=== PATIENT | male | born 1965 | race Caucasian/White ===

== ENCOUNTER → 2020-11-09 | Outpatient (CLI) | payer BC ==
--- NOTE | 2020-11-09 15:59 | US ---
EXAMINATION TYPE: US axilla LT DATE OF EXAM: 11/09/2020 COMPARISON: NONE CLINICAL HISTORY: R59.0 Localized enlarged lymph nodes. Pt has large palpable lump left axilla x 2 we eks post Moderna vaccine Large, solid lesion left axilla at pt's palpable= 5.7 x 3.8 x 6.9 cm/ blood flow visualized within Second, smaller solid lesion superior to larger one= 3.7 x 1.8 x 2.8 cm Attempted to call 's office at time of exam, no answer IMPRESSION: 1. Very large lymph node left axilla. Patient is status post COVID vaccination. Enlarged lymphadenopa thy is a known side effect. Close clinical management can be performed. Monitor for resolution. If fi ndings are not resolving, follow-up with CT chest with contrast. Lymphoma would have to be considered within the differential.
== END | disposition home or self-care (01) ==
LOC: RADUSWWP 15:34
PROVIDERS: ATTEND Family Medicine
DX: R59.0 Localized enlarged lymph nodes (principal)

== ENCOUNTER → 2020-12-11 | Outpatient (CLI) | payer BC ==
--- NOTE | 2020-12-11 23:07 | CT ---
EXAMINATION TYPE: CT chest abdomen w con DATE OF EXAM: 12/11/2020 COMPARISON: Ultrasound left axilla November 09, 2020. HISTORY: enlarged lymph nodes CT DLP: 1498.8 mGycm. Automated Exposure Control for Dose Reduction was Utilized. CONTRAST: CT scan of the thorax and abdomen are performed with oral and with IV Contrast, patient injected with 100 mL of Isovue 300. FINDINGS: LUNGS: The lungs are grossly clear, there is no concerning parenchymal mass or nodule identified. T here is no pleural effusion or pneumothorax seen. The tracheobronchial tree is patent. MEDIASTINUM: There are no greater than 1 cm hilar or mediastinal lymph nodes. No pericardial effusi on is seen. Mild cardiomegaly. Moderate to severe coronary artery calcification and/or stents, corre late clinically mild biventricular dilatation. Heterogeneous slightly enlarged thyroid suspicious for goiter correlate clinically OTHER: Markedly enlarged left axillary lymph nodes. Largest not completely image measures 6.8 x 5.2 c m axial image 18. Abnormal bilateral supraclavicular lymph nodes suspected axial image 5. LIVER/GB: No significant abnormality is appreciated. PANCREAS: No significant abnormality is seen. SPLEEN: No significant abnormality is seen. ADRENALS: No significant abnormality is seen. KIDNEYS: No significant abnormality is seen. BOWEL: Oral contrast does not reach colonic level. No suspicious small or large bowel dilatation. Few diverticula in the distal colon are appreciated. LYMPH NODES: No greater than 1cm abdominal lymph nodes are appreciated. OSSEOUS STRUCTURES: Transitional type vertebra lumbosacral junction. Facet arthropathy lower lumbar l evels. OTHER: Small umbilical hernia containing fat and tiny mesenteric vessel. IMPRESSION: Marked abnormal multiple left axillary lymph nodes remain present. Neoplasm such as lymp sally needs to be considered. Suggestion of bilateral supraclavicular involvement. Imaging guided samp ling and/or PET/CT follow-up is advised.
== END | disposition home or self-care (01) ==
LOC: RADCTMAIN 17:26
PROVIDERS: ATTEND Family Medicine
DX: R59.0 Localized enlarged lymph nodes (principal)
CPT/HCPCS: 71260; 74160; Q9967

== ENCOUNTER 2021-01-02 07:47 | Day surgery (SDC) | payer BC ==
[2021-01-02 08:35] VITALS: TEMP 98.4
[2021-01-02 09:48] VITALS: BP 119/71; PULSE 69; RESP 16
--- NOTE | 2021-01-02 09:48 | US ---
ULTRASOUND GUIDED CORE BIOPSY LEFT AXILLA MASS: CLINICAL HISTORY: Left axilla mass FINDINGS: The procedure was explained to the patient. The risks, complications, benefits and alternatives were discussed and any questions were answered. Informed consent was obtained. Patient was placed supin e on the ultrasound table and prepped and draped in the usual sterile fashion. Utilizing a 18 gauge needle, 3 passes were made into the requested left axilla mass. Patient was stable throughout the procedure. Pathology is pending. All elements of maximal barrier and sterile technique were utilized. IMPRESSION: 1. Successful ultrasound guided core biopsy left axillary mass.
== END 2021-01-02 09:45 | disposition home or self-care (01) ==
LOC: RADPROMAIN 07:47
PROVIDERS: ATTEND Family Medicine
DX: C85.94 Non-Hodgkin lymphoma, unspecified, lymph nodes of axilla and upper limb (principal)
CPT/HCPCS: 38505; 76942; 88305; 88341; 88342

== ENCOUNTER → 2021-01-12 | Outpatient (CLI) | payer BC ==
--- NOTE | 2021-01-13 11:48 | PE ---
EXAMINATION TYPE: PET CT fusion skull to thigh DATE OF EXAM: 01/12/2021 COMPARISON: CT chest and abdomen December 11, 2020 HISTORY: Lymphoma on left axillary biopsy January 02 TECHNIQUE: Following the intravenous administration of 10.38 mCi of F-18 FDG, whole body images are performed from the skull base to the midthigh. Images are reviewed on the computer in the coronal, a xial, and sagittal planes. Reconstructed rotating images are created on independent workstation and reviewed on the computer. A localization and attenuation correction CT is performed in conjunction with the PET scan. Blood glucose level equals 85. SCAN: Initial Scan FINDINGS: SKULL BASE AND NECK: Hypermetabolic uptake in the enlarged left supraclavicular lymph nodes extendin g to the posterior cervical triangle at level of vocal cords up to level of hyoid bone. For reference with larger lymph nodes measures 1.7 x 1.6 cm axial image 47. CHEST, MEDIASTINUM, AND HILAR REGION: Corresponding to CT enlarged hypermetabolic lymph nodes extend inferiorly to the left axilla. There are abnormal hypermetabolic enlarged lymph nodes posterior to th e pectoralis muscles. Largest lymph node measures 6.9 x 6.0 cm image 82. No additional areas of abnormal hypermetabolic uptake or adenopathy. ABDOMEN AND PELVIS: No abnormal hypermetabolic uptake. Normal excretion. No suspicious adenopathy. OSSEOUS STRUCTURES: No abnormal hypermetabolic uptake. OTHER CT: Moderate to severe three-vessel coronary artery calcification and/or stents. Somewhat low l yeimy volumes. Diverticula in the left and sigmoid colon. Facet arthropathy lower lumbar levels. Small fat-containin g umbilical hernia. Enlarged prostate consistent with BPH. IMPRESSION: Extensive Lymphoma involvement left axilla and left supraclavicular region with neck exte nsion up to level of vocal cords anteriorly and posterior cervical triangle involvement at and below hyoid bone. No additional involvement in the thorax or below the diaphragm noted.
== END | disposition home or self-care (01) ==
LOC: RADPETMAIN 14:10
PROVIDERS: ATTEND Internal Medicine Hematology & Oncology
DX: C85.98 Non-Hodgkin lymphoma, unspecified, lymph nodes of multiple sites (principal)
CPT/HCPCS: 78815; A9552

== ENCOUNTER → 2021-03-16 | Outpatient (CLI) | payer BC ==
--- NOTE | 2021-03-20 11:05 | PE ---
Nuclear medicine PET/CT HISTORY: C 83.38, subsequent, left supraclavicular and axillary region, cervical Patient received 7.9 mCi F-18 FDG intravenously in delayed scanning was performed from the skull base to the mid thighs. A localization and attenuation correction CT scan was performed. Correlation to prior nuclear medicine PET/CT 01/12/2021 Chest and neck: The extent of the adenopathy and hypermetabolic activity has improved within the left axillary region, the nodes have decreased in size in the left axilla and the subpectoral region, res idual adenopathy is present in the left axilla, the supraclavicular region no longer shows adenopathy or hypermetabolic uptake. Residual adenopathy in the left axilla shows short axis measurement of vinayak roximately 2.8 cm as compared to prior when it measured approximately 6 cm, additional node measures approximately 18 mm and on previous measured approximately 4.3 cm in short axis, SUV values approxima tely 4.1, 4.9, nonenlarged node shows an SUV of 4.1, O pectoral node shows an SUV of 3.8. There is no pleural or pericardial effusion. Coronary artery calcification is again seen. No mediastinal or cari r, right axillary adenopathy is evident. ABDOMEN: There is no retroperitoneal adenopathy or evident liver mass. There is no ascites. No suspic ious hypermetabolic uptake. Osseous structures showed diffuse uptake which may be related to marrow activation. Subclavian centra l venous catheter is noted incidentally, distal tip in the superior vena cava. IMPRESSION: Positive tumor response as described.
== END | disposition home or self-care (01) ==
LOC: RADPETMAIN 14:58
PROVIDERS: ATTEND Internal Medicine Hematology & Oncology
DX: C83.38 Diffuse large B-cell lymphoma, lymph nodes of multiple sites (principal)
CPT/HCPCS: 78815; A9552

== ENCOUNTER → 2021-06-01 | Outpatient (CLI) | payer BC ==
--- NOTE | 2021-06-04 08:02 | PE ---
EXAMINATION TYPE: PET CT fusion skull to thigh DATE OF EXAM: 06/01/2021 COMPARISON: Prior PET/CT March 16, 2021 and older studies. 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 Completed chemotherapy May 11. TECHNIQUE: Following the intravenous administration of 9.97 mCi of F-18 FDG, whole body images are p erformed from the skull base to the midthigh. Images are reviewed on the computer in the coronal, ax ial, and sagittal planes. Reconstructed rotating images are created on independent workstation and r eviewed on the computer. A localization and attenuation correction CT is performed in conjunction w ith the PET scan. Blood glucose level equals 98. SCAN: Subsequent Scan FINDINGS: MEAN SUV MEDIASTINUM: MEAN SUV LIVER: SKULL BASE AND NECK: No recurrent hypermetabolic left supraclavicular lymph node. No new hypermetabo lic adenopathy. CHEST, MEDIASTINUM, AND HILAR REGION: Persistent hypermetabolic left axillary lymph nodes including l evel 1 and 2 lymph nodes medially and posterior to the pectoralis minor muscle. These are larger from most recent PET/CT. For reference largest lymph node measures 5.5 x 3.6 cm axial image 83 versus 4.4 x 2.8 cm prior study axial image 89. Max SUV is 20.68 versus prior study at 4.88. No additional no new areas of abnormal hypermetabolic uptake or adenopathy in the thorax. ABDOMEN AND PELVIS: No abnormal hypermetabolic uptake. Normal excretion. No suspicious new adenopathy . OSSEOUS STRUCTURES: No abnormal hypermetabolic uptake. Improved diffuse osseous uptake. OTHER CT: Stable right subclavian Mediport catheter. Moderate to severe three-vessel coronary artery calcification and/or stents redemonstrated with cardiomegaly. Somewhat low lung volumes redemonstrate d. Colonic diverticulosis redemonstrated. Facet arthropathy lower lumbar levels. Small fat-containing um bilical hernia. Enlarged prostate consistent with BPH. IMPRESSION: Negative treatment response. Worsening left axillary adenopathy noted. No new sites of ad enopathy seen.
== END | disposition home or self-care (01) ==
LOC: RADPETMAIN 09:45
PROVIDERS: ATTEND Internal Medicine Hematology & Oncology
DX: C83.38 Diffuse large B-cell lymphoma, lymph nodes of multiple sites (principal)
CPT/HCPCS: 78815; A9552

== ENCOUNTER → 2021-08-31 | Outpatient (CLI) | payer BC ==
--- NOTE | 2021-09-05 10:13 | PE ---
Nuclear medicine PET/CT HISTORY: C 83.38, lymphoma, subsequent left axillary Correlation to prior nuclear medicine PET/CT 06/01/2021 Patient received 10 mCi F-18 FDG intravenously in delayed scanning was performed from skull base to t he mid thighs. Localization and attenuation correction CT scan was performed. Chest and neck: The abnormal uptake within the left axilla associated with the adenopathy is extensiv e and shows SUV 17-18. The nodes have increased in size, the largest node now measures approximately 6.4 x 7.8 cm where as on previous exam measured approximately 5.5 x 3.6 cm. Subpectoral node is also again noted with associated activity similar to prior exam. There is no cervical or supraclavicular a denopathy. Probable arachnoid cyst incidentally noted in the posterior fossa as on prior. Calcificati ons along the pharyngeal soft tissues consistent with chronic infection. There is a port in the right pectoral region coursing via a subclavian approach, distal tip the catheter in the superior vena cav a. There are coronary calcifications. There is no evident lung mass. No pleural or pericardial effusi on. ABDOMEN: There is no evident liver mass. No retroperitoneal adenopathy or pelvic adenopathy. Aorta sh ows normal caliber. Diverticular changes are associated with the colon. Kidneys, adrenal glands, sple en, liver, gallbladder are stable. Prostate shows calcification. Osseous structures show no interval change. IMPRESSION: There has been interval increase in size of patient's left axillary adenopathy and associ ated elevation in SUV values as described.
== END | disposition home or self-care (01) ==
LOC: RADPETMAIN 08:35
PROVIDERS: ATTEND Internal Medicine Hematology & Oncology
DX: C83.38 Diffuse large B-cell lymphoma, lymph nodes of multiple sites (principal)
CPT/HCPCS: 78816; A9552

== ENCOUNTER → 2022-11-18 | Outpatient (CLI) | payer BC ==
--- NOTE | 2022-11-18 13:46 | CT ---
EXAMINATION TYPE: CT sinus wo con DATE OF EXAM: 11/18/2022 COMPARISON: None HISTORY: ongoing sinusitis CT DLP: 628.70 mGycm. Automated Exposure Control for Dose Reduction was Utilized. TECHNIQUE: CT scan of the sinuses is performed without contrast, axial images are obtained, coronal r eformatted images are also reviewed. FINDINGS: The paranasal sinuses including the frontal, ethmoid, sphenoid, and maxillary sinuses bila terally mild mucosal thickening involving the sphenoid sinus with moderate changes involving the fron itz sinus and bilateral maxillary sinuses. Occlusion of the bilateral ostiomeatal complex with severe ethmoidal changes of sinusitis. No air-fluid levels. There is an air nasal septal deviation. Visualized portion of mastoid air cells show near complete opacification station compatible with personal fitness manager precious mastoiditis. There also appears to be increased soft tissue within the middle ear which may repre sent middle ear effusion or granulation tissue. Cholesteatoma not entirely excluded.. The globes are intact bilaterally. Prominent cisterna magna noted intracranially. Low attenuation right basal gang fely suggestive of remote lacunar infarct. IMPRESSION: 1. Moderate to severe chronic sinusitis most marked involving ethmoidal air cells with occlusion of b ilateral ostiomeatal complex. 2. Bilateral mastoiditis. 3. Correlate for middle ear effusion, infection or granulation tissue. CT of the IACs could be obtain ed for further evaluation to exclude cholesteatoma clinically warranted.
== END | disposition home or self-care (01) ==
LOC: RADCTMAIN 12:14
PROVIDERS: ATTEND Otolaryngology
DX: J32.2 Chronic ethmoidal sinusitis (principal); H70.13 Chronic mastoiditis, bilateral
CPT/HCPCS: 70486

== ENCOUNTER → 2024-08-05 | Outpatient (CLI) | payer BC ==
--- NOTE | 2024-08-05 13:49 | CA ---
Exercise Stress Test Report Name: Brian Kaye Exam Date: 08/05/2024 09:24 Exam Location: [place] Stress Ht (in): 67 Wt (lb): 228 BSA: 2.14 Ordering Phys: Andre Farrell MD Referring Phys: Andre Farrell MD Technologist: Fred Dale Age: 59 Gender: M : 1965 Procedure CPT: Indications: CAD ICD-10 Codes: Patient History: Medications: METOPROLOL, SIMVASTATIN Meds past 24 hrs: Pretest Chest Pain: STRESS TEST Claude Protocol Exercise Duration (min:sec): 10:[address] Depressions (mm): Angina Score: Mary Score: Resting HR (bpm): 73 Peak HR (bpm): 155 Resting BP (mmHg): 119 / 74 Peak BP (mmHg): 164 / 74 MPHR: 162 Target HR: 138 % MPHR: 96 METS: 12.1 Total Dose: Peak Dose: Atropine: Double Product: 01157 BP Response: Stress Termination: Reached target heart rate Stress Symptoms: No chest pain or symptoms Stress Summary: ECG ANALYSIS Resting ECG: Normal sinus rhythm, Q waves in 1 and aVL, Stress ECG: No significant ST-T wave changes that are diagnostic for ischemia. No sustained arrhythmias or ectopic beats noted during the stress test. CONCLUSIONS Excellent exercise tolerance for age achieving 12.1 METS Normal hemodynamic and blood pressure response to treadmill exercise Nonischemic ECG response to treadmill exercise Overall normal treadmill stress test Dr Brendan Bourne (Electronically Signed) Final Date: 05 August 2024 13:48
== END | disposition home or self-care (01) ==
LOC: RADNMMAIN 08:47
PROVIDERS: ATTEND Internal Medicine Cardiovascular Disease
DX: I25.10 Atherosclerotic heart disease of native coronary artery without angina pectoris (principal)
CPT/HCPCS: 93017